=== PATIENT | female | born 1950 | race Caucasian/White ===

== ENCOUNTER → 2017-03-27 | Outpatient (CLI) | payer MEDICARE ==
--- NOTE | 2017-03-27 10:27 | US ---
EXAMINATION TYPE: US pelvic complete DATE OF EXAM: 03/27/2017 COMPARISON: CT in PACS CLINICAL HISTORY: Abd Bloating R14.0. TECHNIQUE: Transabdominal (TA) EXAM MEASUREMENTS: Uterus: Surgically absent Endometrial Stripe: Surgically absent Right Ovary: 3.0 x 1.7 x 2.2 cm Left Ovary: 2.2 x 1.0 x 1.2 cm 1. Uterus: Surgically absent 2. Endometrium: Surgically absent 3. Right Ovary: wnl 4. Left Ovary: wnl 5. Bilateral Adnexa: wnl 6. Posterior cul-de-sac: wnl IMPRESSION: Surgical absence of the uterus and unremarkable ovaries.
--- NOTE | 2017-03-27 10:27 | US ---
EXAMINATION TYPE: US abdomen complete DATE OF EXAM: 03/27/2017 COMPARISON: CT in PACS CLINICAL HISTORY: Abd Bloating R14.0. History of colon CA 15 years ago. Difficult exam due to overlyi ng bowel gas and patient body habitus EXAM MEASUREMENTS: Liver Length: 17.3 cm Gallbladder Wall: Surgically absent CBD: 0.5 cm Spleen: 8.3 cm Right Kidney: 10.3 x 4.4 x 4.2 cm Left Kidney: 11.4 x 5.2 x 4.5 cm Pancreas: Obscured by bowel gas, visualized portions are. Unremarkable Liver: Coarse echotexture. Measuring upper limits of normal. This limits evaluation for underlying h epatic masses. Gallbladder: wnl Evidence for sonographic Holloway's sign: No CBD: wnl Spleen: wnl Right Kidney: No hydronephrosis or masses seen Left Kidney: Cystic area visualized upper pole measuring 0.8 x 0.8 x 1.0 cm Upper IVC: wnl Abd Aorta: Atherosclerotic changes IMPRESSION: 1. Coarsened hepatic echotexture, most commonly related to underlying hepatic steatosis. This finding limits evaluation for underlying hepatic masses although no focal hepatic masses are appreciated. 2. Probable 1.0 cm left renal cyst.
== END | disposition home or self-care (01) ==
LOC: RADUSWWP 09:26
PROVIDERS: ATTEND Family Medicine
DX: R93.2 Abnormal findings on diagnostic imaging of liver and biliary tract (principal)
CPT/HCPCS: 76700; 76856

== ENCOUNTER → 2017-08-06 | Outpatient (CLI) | payer MEDICARE ==
--- NOTE | 2017-08-07 09:05 | MM ---
Reason for exam: screening (asymptomatic). Last mammogram was performed 1 year ago. History: Patient is postmenopausal and has history of colon cancer at age 51. Physical Findings: A clinical breast exam by your physician is recommended on an annual basis and results should be correlated with mammographic findings. MG 3D Screening Mammo W/Cad Bilateral CC and MLO view(s) were taken. Prior study comparison: July 27, 2016, bilateral MG 3d screening mammo w/cad. March 10, 2015, bilateral MG screening mammo w CAD. There are scattered fibroglandular densities. There is no discrete abnormality. No significant changes when compared with prior studies. ASSESSMENT: Negative, BI-RAD 1 RECOMMENDATION: Routine screening mammogram of both breasts in 1 year.
== END | disposition home or self-care (01) ==
LOC: RADMAMWWP 11:33
PROVIDERS: ATTEND Family Medicine
DX: Z12.31 Encounter for screening mammogram for malignant neoplasm of breast (principal)
CPT/HCPCS: 77063; 77067

== ENCOUNTER → 2018-06-20 | Outpatient (CLI) | payer MEDICARE ==
--- NOTE | 2018-06-20 15:16 | US ---
EXAMINATION TYPE: US kidneys/renal and bladder DATE OF EXAM: 06/20/2018 COMPARISON: NONE CLINICAL HISTORY: R94.4 Abnormal kidney function results. EXAM MEASUREMENTS: Right Kidney: 9.5 x 4.2 x 4.7 cm Left Kidney: 11.7 x 5.3 x 5.8 cm Right Kidney: wnl Left Kidney: seen with a 1.5cm cyst at the upper pole, otherwise wnl Bladder: wnl Bilateral Jets seen: yes There is no evidence for hydronephrosis at this point in time. No nephrolithiasis is seen. No rodriguez s are identified. The urinary bladder is anechoic. Bilateral ureteral jets are seen. IMPRESSION: 1. Simple appearing cyst left kidney. 2. Renal ultrasound is otherwise unremarkable.
== END | disposition home or self-care (01) ==
LOC: RADUSWWP 13:36
PROVIDERS: ATTEND Family Medicine
DX: N28.1 Cyst of kidney, acquired (principal)
CPT/HCPCS: 76770

== ENCOUNTER → 2018-12-02 | Outpatient (CLI) | payer MEDICARE ==
--- NOTE | 2018-12-02 20:21 | CONS ---
CONSULTATION REASON FOR CONSULTATION: Consultation for sleep apnea. This is a 68-year-old female patient referred to me upon the request of primary care physician for sleep apnea issues. The patient has an irregular sleep-wake cycle. She is waking up tired and sleepy during the day. She goes to bed around 10-11 p.m. waking up in the office messenger hours around 6:00 am. She is known to have COPD which is mild with an FEV1 of 75% of predicted. She has previous history of DVT and pulmonary embolism and she is maintained on long-term anticoagulation with Eliquis. She has a mild degree of pulmonary hypertension. She also had atrial fibrillation. She is maintained on anticoagulation. She has symptoms to suggest SOMMER including snoring, excessive daytime sleepiness. She was referred to me for a sleep apnea evaluation. PAST MEDICAL HISTORY: 1. COPD. 2. History of DVT. 3. History of pulmonary embolism. 4. Chronic atrial fibrillation. 5. Depression. 6. Acid reflux. 7. Hypertension. 8. Hyperlipidemia. 9. Hypothyroidism. 10.Chronic neck and back pain. 11.History of migraines. 12.History of anxiety. 13.History of mitral valve prolapse. PAST SURGICAL HISTORY: Includes cholecystectomy, tubal ligation, ankle surgery, surgery for endometriosis and the patient has undergone total abdominal hysterectomy and tubal ligation. Fistulectomy, D and C, breast biopsy, colonoscopy ventral hernia repair. Cardiac catheterization, sigmoid resection for cancer and colon cancer and total thyroidectomy. DRUG ALLERGIES: TO AUGMENTIN, BACTRIM, CIPRO and IODINE. SOCIAL HISTORY: Is a ex-smoker. No history of alcohol. No history of IV drugs. The patient has around 60 pack-year smoking history. She occasionally drinks alcohol. She used to drive a school bus. She is . REVIEW OF SYSTEMS: Fourteen-point review of system was done. Positive findings are mentioned above in the history of present illness. Note that the patient has chronic arthralgia and joint pain and back pain and reports no muscle aches or muscle weakness. No swelling in the lower extremities. She has stiffness and achiness in her joints especially in her hips and lower lumbar spine without any radiation. No night sweats. No significant weight gain or weight loss. No exercise. No oral ulceration. She has chronic exertional dyspnea. No wheezes. No hemoptysis. No pleurisy. No sleep apnea. No heartburn. No nausea, vomiting, or diarrhea. No abdominal pain. No skin rashes or lesions. No polyuria or polydipsia. PHYSICAL EXAMINATION: Her current BP is 174/77, pulse 60, respirations 16, temperature 98.3, saturation 95% on room air. Height is 5 feet, 2 inches, weight is 217 and neck size 14.5 inches, BMI 39.6. GENERAL APPEARANCE: Calm, comfortable. HEENT: Head is atraumatic, normocephalic. NECK: Supple. No JVD. No goiter or neck masses. Mallampati class II. LUNGS: Clear to auscultation. HEART: Sounds regular rate and rhythm. Normal S1, S2. No S3. No murmurs. ABDOMEN: Soft, nontender. No organomegaly. EXTREMITIES: No edema. No cyanosis or clubbing. NEUROLOGIC: Alert and oriented x3. No focal neurological deficits. PSYCHIATRIC: Negative for anxiety or depression. IMPRESSION: 1. Chronic hypersomnia currently under investigation, consider obstructive sleep apnea. 2. Loud snoring. 3. History of chronic obstructive pulmonary disease, FEV1 75% of predicted. 4. History of deep vein thrombosis and pulmonary embolism. 5. History of mild pulmonary hypertension which is likely secondary in nature. 6. Chronic atrial fibrillation. 7. History of colonic cancer with previous sigmoid resection. 8. Hypothyroidism. 9. Obesity with a BMI of 39.6. 10.History of depression. 11.History of chronic anxiety. 12.Hypertension. 13.Comorbidities, all as mentioned above. PLAN: Proceed with a screening polysomnogram. The patient was attempted to undergo a home sleep study a few years back. However that study failed for technical reasons. Based on her ongoing comorbidities and cardiovascular disease, the patient will be undergoing an in lab sleep study. Will review the study and will make further recommendations and make further advice if treatment is needed. MMODL / IJN: [id number] /
== END | disposition home or self-care (01) ==
LOC: SLEEP 15:50
PROVIDERS: ATTEND Internal Medicine Critical Care Medicine
DX: G47.10 Hypersomnia, unspecified (principal); R06.83 Snoring; J44.9 Chronic obstructive pulmonary disease, unspecified; F32.9 Major depressive disorder, single episode, unspecified; F41.9 Anxiety disorder, unspecified; E03.9 Hypothyroidism, unspecified; E66.9 Obesity, unspecified; I27.20 Pulmonary hypertension, unspecified; I48.91 Unspecified atrial fibrillation; Z86.718 Personal history of other venous thrombosis and embolism; Z86.711 Personal history of pulmonary embolism; Z79.01 Long term (current) use of anticoagulants; Z85.038 Personal history of other malignant neoplasm of large intestine; Z98.890 Other specified postprocedural states; Z68.39 Body mass index [BMI] 39.0-39.9, adult; Z87.891 Personal history of nicotine dependence; Z90.49 Acquired absence of other specified parts of digestive tract; Z88.1 Allergy status to other antibiotic agents; Z90.89 Acquired absence of other organs; Z88.2 Allergy status to sulfonamides; Z88.0 Allergy status to penicillin; Z91.041 Radiographic dye allergy status
CPT/HCPCS: 99211

== ENCOUNTER → 2019-01-19 | Outpatient (CLI) | payer MEDICARE ==
--- NOTE | 2019-01-20 13:20 | MM ---
Reason for exam: screening (asymptomatic). Last mammogram was performed 1 year and 5 months ago. History: Patient is postmenopausal and has history of colon cancer at age 51. Physical Findings: A clinical breast exam by your physician is recommended on an annual basis and results should be correlated with mammographic findings. MG 3D Screening Mammo W/Cad Bilateral CC and MLO view(s) were taken. Prior study comparison: August 06, 2017, bilateral MG 3d screening mammo w/cad. July 27, 2016, bilateral MG 3d screening mammo w/cad. There are scattered fibroglandular densities. Benign appearing bilateral calcifications. No suspicious abnormality. No significant changes when compared with prior studies. ASSESSMENT: Benign, BI-RAD 2 RECOMMENDATION: Routine screening mammogram of both breasts in 1 year.
== END | disposition home or self-care (01) ==
LOC: RADMAMWWP 16:27
PROVIDERS: ATTEND Family Medicine
DX: Z12.31 Encounter for screening mammogram for malignant neoplasm of breast (principal)
CPT/HCPCS: 77063; 77067

== ENCOUNTER → 2019-04-17 | Outpatient (CLI) | payer MEDICARE ==
--- NOTE | 2019-04-17 10:45 | ECHOF ---
Referral Reason:I27.20 pulmonary hypertension MEASUREMENTS -------- HEIGHT: 157.5 cm WEIGHT: 95.3 kg BP: RVIDd: 3.5 cm (< 3.3) IVSd: 1.0 cm (0.6 - 1.1) LVIDd: 4.3 cm (3.9 - 5.3) LVPWd: 1.4 cm (0.6 - 1.1) IVSs: 1.6 cm LVIDs: 2.6 cm LVPWs: 1.6 cm LA Diam: 4.0 cm (2.7 - 3.8) LAESV Index (A-L): 28.08 ml/m Ao Diam: 3.1 cm (2.0 - 3.7) AV Cusp: 1.3 cm (1.5 - 2.6) LA Diam: 3.1 cm (2.7 - 3.8) MV EXCURSION: 22.560 mm (> 18.000) MV EF SLOPE: 87 mm/s (70 - 150) EPSS: 0.1 cm MV E Bernardo: 0.92 m/s MV DecT: 253 ms MV A Bernardo: 1.24 m/s MV E/A Ratio: 0.74 RAP: 5.00 mmHg RVSP: 30.53 mmHg TAPSE: 23.25 mm FINDINGS -------- Sinus rhythm. This was a technically good study. LV size, wall thickness and systolic function are normal, with an EF greater than 55%. The left roberth tricular size is normal. The diastolic filling pattern is normal for the age of the patient 20.30. The right ventricle is normal in size. LA is midly dilated 29-33ml/m2. The right atrial size is normal. The aortic valve is trileaflet, and appears structurally normal. No aortic stenosis or regurgitation. The mitral valve is normal. Mild mitral regurgitation is present. Trace tricuspid regurgitation present. There is no evidence of pulmonary hypertension. The right ventricular systolic pressure, as measured by Doppler, is 30.53mmHg. There is no pulmonic regurgitation present. The aortic root size is normal. Echo free space indicative of a pericardial fat pad. CONCLUSIONS -------- 1. Sinus rhythm. 2. This was a technically good study. 3. LV size, wall thickness and systolic function are normal, with an EF greater than 55%. 4. The left ventricular size is normal. 5. LA is midly dilated 29-33ml/m2. 6. The aortic valve is trileaflet, and appears structurally normal. No aortic stenosis or regurgitati on. 7. Mild mitral regurgitation is present. 8. Trace tricuspid regurgitation present. 9. There is no evidence of pulmonary hypertension. 10. There is no pulmonic regurgitation present. 11. The aortic root size is normal. 12. Echo free space indicative of a pericardial fat pad. STOPPING BUILDER: Yolande Tapia RDCS
== END | disposition home or self-care (01) ==
LOC: RADECHMAIN 08:12
PROVIDERS: ATTEND Family Medicine
DX: I34.0 Nonrheumatic mitral (valve) insufficiency (principal)
CPT/HCPCS: 93306

== ENCOUNTER → 2019-05-05 | Outpatient (CLI) | payer MEDICARE ==
[2019-05-05 09:08] LABS: African American GFR (CKD) >90 (>60 ml/min/1.73 sqM); Blood Urea Nitrogen 16 mg/dL (7-17)
--- NOTE | 2019-05-05 10:25 | CT ---
EXAMINATION TYPE: CT angio chest DATE OF EXAM: 05/05/2019 COMPARISON: 01/21/2015 HISTORY: 68-year-old female SOB, history of PE TECHNIQUE: Contiguous axial scanning of the chest performed with IV Contrast, patient injected with 7 3 mL of Isovue 370. Coronal/sagittal MIP reconstructions performed. CT DLP: 584 mGycm Automated exposure control for dose reduction was used. FINDINGS: Heart normal size without pericardial effusion. Scattered coronary vessel calcifications are present. No flattening of the interventricular septum or reflux of contrast into the hepatic veins. Borderline satisfactory opacification of the pulmonary arterial system without evidence for pulmonary embolus. Mild atherosclerotic arch calcifications with conventional branching anatomy. Aorta is normal caliber . Scattered nonenlarged mediastinal lymph nodes. No thoracic lymphadenopathy by CT size criteria. Mild to moderate centrilobular emphysema and mild diffuse bronchial wall thickening. Prominent strand y scarring and atelectasis in the lower lungs, similar to 2014. No consolidation or pleural effusion. Small hiatal hernia. Visualized upper abdomen shows post cystectomy clips. Partially visualized hypod ense lesion lateral left kidney, likely underlying cyst. Bones: No osseous destructive process. IMPRESSION: 1. BORDERLINE SATISFACTORY OPACIFICATION OF THE PULMONARY ARTERY SYSTEM WITHOUT EVIDENCE FOR PULMONAR Y EMBOLUS. 2. COPD WITH MILD TO MODERATE EMPHYSEMA. NO ACUTE PULMONARY PROCESS. STABLE PROMINENT BANDLIKE SCARRI NG AND ATELECTASIS IN THE LOWER LUNGS. 3. SMALL HIATAL HERNIA.
== END | disposition home or self-care (01) ==
LOC: RADCTMAIN 08:15
PROVIDERS: ATTEND Internal Medicine
DX: J43.9 Emphysema, unspecified (principal); J98.11 Atelectasis; R06.02 Shortness of breath; Z88.0 Allergy status to penicillin; Z88.1 Allergy status to other antibiotic agents; Z88.2 Allergy status to sulfonamides; Z91.041 Radiographic dye allergy status
CPT/HCPCS: 82565; 84520; 71275; 36415; Q9967

== ENCOUNTER → 2020-06-17 | Outpatient (CLI) | payer MEDICARE ==
--- NOTE | 2020-06-17 11:33 | CT ---
EXAMINATION TYPE: CT abdomen pelvis wo con DATE OF EXAM: 06/17/2020 COMPARISON: 02/18/2013 HISTORY: RLQ pain CT DLP: 998 mGycm Examination of the solid and hollow viscera is limited given the lack of contrast. FINDINGS: LUNG BASES: No evidence for nodule. No evidence for infiltrate. LIVER/GB: Cholecystectomy clips are in place. No space-occupying hepatic lesion. PANCREAS: No pancreatic mass identified. No inflammatory process seen. SPLEEN: No evidence for splenomegaly. No intrasplenic lesions seen. ADRENALS: No adrenal nodules identified. No evidence for thickening. KIDNEYS: No evidence for renal mass. No nephrolithiasis. No hydronephrosis. BOWEL: Appendix has a normal appearance. No evidence of bowel obstruction. No inflammatory process. Lymph nodes: No evidence for adenopathy greater than 1 cm. Abdominal aorta: Atheromatous changes seen. No evidence for aneurysm. Genital organs: Hysterectomy change. No distinct mass. Other: No significant abnormality. IMPRESSION: 1. No distinct abnormality at this time.
== END | disposition home or self-care (01) ==
LOC: RADCTMAIN 10:42
PROVIDERS: ATTEND Surgery
DX: R10.31 Right lower quadrant pain (principal)
CPT/HCPCS: 74176

== ENCOUNTER 2020-07-04 12:55 | Inpatient (IN) | payer MEDICARE ==
[2020-07-04] MEDS ORDERED: ASPIRIN 81 MG PO STA (13:10)
[2020-07-04] MEDS ORDERED: NITROGLYCERIN OINT 1 INCH/GM PACKET TOPICAL STA (13:10)
--- NOTE | 2020-07-04 13:14 | ED ---
General Adult HPI - General Chief complaint: Chest Pain Stated complaint: chest pain Time Seen by Provider: 07/04/20 12:55 Source: patient, RN notes reviewed, old records reviewed Mode of arrival: wheelchair Limitations: no limitations - History of Present Illness Initial comments: This is a 69-year-old female who presents emergency Department complaining of chest pain. Patient states she just had a colonoscopy and she was in the recovery area when she started having chest heaviness she states it lasts about 20 minutes radiated to her back. Patient states she had no shortness of breath or difficulty breathing. Patient states the pain is still there slightly but no or near his bad as it was earlier. Patient denies any diaphoretic episodes. P atient denies abdominal pain patient denies nausea vomiting or diarrhea. Patient denies any recent fever chills or cough. Patient denies lightheadedness or dizziness. Patient denies patient states she's been told in the past that she has coronary artery disease. Patient states she used to be a smoker quit 15 years ago. Patient states she has a strong family history of heart disease. Patient states she has high blood pressure high cholesterol. - Related Data Home Medications Medication Instructions Recorded Confirmed Levothyroxine Sodium [Synthroid] 100 mcg PO DAILY 05/05/14 07/04/20 Furosemide [Lasix] 20 mg PO Q48H 11/15/15 07/04/20 Isosorbide Mononitrate [Isosorbide 30 mg PO DAILY 03/21/16 07/04/20 Mononitrate ER] Nitroglycerin Sl Tabs [Nitrostat] 0.4 mg SUBLINGUAL Q5M PRN 03/21/16 07/04/20 Acetaminophen Tab [Tylenol Tab] 1,000 mg PO Q6HR PRN 07/04/20 07/04/20 DULoxetine HCL [Cymbalta] 60 mg PO DAILY 07/04/20 07/04/20 Omeprazole 20 mg PO DAILY 07/04/20 07/04/20 Previous Rx's Medication Instructions Recorded Metoprolol Tartrate [Lopressor] 25 mg PO DAILY 30 Days tablet 10/06/14 Allergies Allergy/AdvReac Type Severity Reaction Status Date / Time adhesive Allergy VERY RED Verified 07/04/20 13:56 SKIN WITH TAPE amoxicillin trihydrate Allergy Nausea & Verified 07/04/20 13:56 [From Augmentin] Vomiting Iodinated Contrast Media Allergy Nausea & Verified 07/04/20 13:56 [Iodinated Contrast Media - Vomiting IV Dye] iodine Allergy Rash/Hives Verified 07/04/20 13:56 potassium clavulanate Allergy Nausea & Verified 07/04/20 13:56 [From Augmentin] Vomiting sulfamethoxazole Allergy Rash/Hives Verified 07/04/20 13:56 [From Bactrim] trimethoprim [From Bactrim] Allergy Rash/Hives Verified 07/04/20 13:56 Review of Systems ROS Statement: Those systems with pertinent positive or pertinent negative responses have been documented in the HPI. ROS Other: All systems not noted in ROS Statement are negative. Past Medical History Past Medical History: Cancer, COPD, GERD/Reflux, Hypertension, Osteoarthritis (OA), Pulmonary Embolus (PE), Thyroid Disorder Additional Past Medical History / Comment(s): HYPOGLYCEMIA, HISTORY OF COLON CANCER. MVP, hx of arrythmia, HX hiatal hernia, pulmonary embolisms September 2014 after ankle fx. History of Any Multi-Drug Resistant Organisms: None Reported Past Surgical History: Bowel Resection, Cholecystectomy, Heart Catheterization, Hysterectomy, Orthopedic Surgery Additional Past Surgical History / Comment(s): D&C, THRYOIDECTOMY, ORIF right ankle Past Anesthesia/Blood Transfusion Reactions: No Reported Reaction Past Psychological History: Anxiety, Depression Smoking Status: Never smoker Past Alcohol Use History: Rare Past Drug Use History: None Reported - Past Family History Father Family Medical History: Diabetes Mellitus, Hypertension, Myocardial Infarction (OK) Sister(s) Family Medical History: Diabetes Mellitus Brother(s) Family Medical History: Cancer, Diabetes Mellitus Mother Family Medical History: Cancer General Exam - General Exam Comments Initial Comments: GENERAL: Patient is well-developed and well-nourished. Patient is nontoxic and well- hydrated and is in mild distress. ENT: Neck is soft and supple. No significant lymphadenopathy is noted. Oropharynx is clear. Moist mucous membranes. Neck has full range of motion without eliciting any pain. EYES: The sclera were anicteric and conjunctiva were pink and moist. Extraocular movements were intact and pupils were equal round and reactive to light. Eyelids were unremarkable. PULMONARY: Unlabored respirations. Good breath sounds bilaterally. No audible rales rhonchi or wheezing was noted. CARDIOVASCULAR: There is a regular rate and rhythm without any murmurs gallops or rubs. ABDOMEN: Soft and nontender with normal bowel sounds. SKIN: Skin is clear with no lesions or rashes and otherwise unremarkable. NEUROLOGIC: Patient is alert and oriented x3. Cranial nerves II through XII are grossly intact. Motor and sensory are also intact. Normal speech, volume and content. Symmetrical smile. MUSCULOSKELETAL: Normal extremities with adequate strength and full range of motion. LYMPHATICS: No significant lymphadenopathy is noted PSYCHIATRIC: Normal psychiatric evaluation. Limitations: no limitations Course Vital Signs 07/04/20 07/04/20 12:56 13:34 Temperature 98.6 F Pulse Rate 77 82 Respiratory 18 18 Rate Blood Pressure 160/90 178/89 O2 Sat by Pulse 97 99 Oximetry Medical Decision Making - Medical Decision Making EKG shows sinus rhythm with occasional PAC at 76 bpm [place] interval is 200 QRS 70 QT interval 360 QTC is 414. EKG shows no ST segment elevation or depression Chest x-ray shows no acute abnormality. I started the patient heparin because of the at and STEMI I spoke with cardiology Spoke with Dr. Rivera agreed to admit the patient admitted the patient I continued heparin and aspirin and Nitropaste on the floor and I consult to cardiology - Lab Data Result diagrams: 07/04/20 13:24 07/04/20 13:24 Lab Results 07/04/20 07/04/20 07/04/20 Range/Units 13:24 13:24 13:24 WBC 9.0 (3.8-10.6) k/uL RBC 4.89 (3.80-5.40) m/uL Hgb 14.9 (11.4-16.0) gm/dL Hct 44.1 (34.0-46.0) % MCV 90.3 (80.0-100.0) fL MCH 30.4 (25.0-35.0) pg MCHC 33.7 (31.0-37.0) g/dL RDW 12.6 (11.5-15.5) % Plt Count 296 (150-450) k/uL MPV 6.6 Neutrophils % 77 % Lymphocytes % 16 % Monocytes % 4 % Eosinophils % 1 % Basophils % 0 % Neutrophils # 6.9 (1.3-7.7) k/uL Lymphocytes # 1.5 (1.0-4.8) k/uL Monocytes # 0.4 (0-1.0) k/uL Eosinophils # 0.1 (0-0.7) k/uL Basophils # 0.0 (0-0.2) k/uL PT 9.9 (9.0-12.0) sec INR 0.9 (<1.2) APTT 22.9 (22.0-30.0) sec Sodium 138 (137-145) mmol/L Potassium 4.2 (3.5-5.1) mmol/L Chloride 109 H (98-107) mmol/L Carbon Dioxide 21 L (22-30) mmol/L Anion Gap 8 mmol/L BUN 8 (7-17) mg/dL Creatinine 0.70 (0.52-1.04) mg/dL Est GFR (CKD-EPI)AfAm >90 (>60 ml/min/1.73 sqM) Est GFR (CKD-EPI)NonAf 87 (>60 ml/min/1.73 sqM) Glucose 98 (74-99) mg/dL Calcium 9.3 (8.4-10.2) mg/dL Magnesium 2.0 (1.6-2.3) mg/dL Total Bilirubin 0.5 (0.2-1.3) mg/dL AST 56 H (14-36) U/L ALT 58 H (4-34) U/L Alkaline Phosphatase 94 (38-126) U/L Troponin I (0.000-0.034) ng/mL Total Protein 6.9 (6.3-8.2) g/dL Albumin 4.0 (3.5-5.0) g/dL 07/04/20 Range/Units 13:24 WBC (3.8-10.6) k/uL RBC (3.80-5.40) m/uL Hgb (11.4-16.0) gm/dL Hct (34.0-46.0) % MCV (80.0-100.0) fL MCH (25.0-35.0) pg MCHC (31.0-37.0) g/dL RDW (11.5-15.5) % Plt Count (150-450) k/uL MPV Neutrophils % % Lymphocytes % % Monocytes % % Eosinophils % % Basophils % % Neutrophils # (1.3-7.7) k/uL Lymphocytes # (1.0-4.8) k/uL Monocytes # (0-1.0) k/uL Eosinophils # (0-0.7) k/uL Basophils # (0-0.2) k/uL PT (9.0-12.0) sec INR (<1.2) APTT (22.0-30.0) sec Sodium (137-145) mmol/L Potassium (3.5-5.1) mmol/L Chloride (98-107) mmol/L Carbon Dioxide (22-30) mmol/L Anion Gap mmol/L BUN (7-17) mg/dL Creatinine (0.52-1.04) mg/dL Est GFR (CKD-EPI)AfAm (>60 ml/min/1.73 sqM) Est GFR (CKD-EPI)NonAf (>60 ml/min/1.73 sqM) Glucose (74-99) mg/dL Calcium (8.4-10.2) mg/dL Magnesium (1.6-2.3) mg/dL Total Bilirubin (0.2-1.3) mg/dL AST (14-36) U/L ALT (4-34) U/L Alkaline Phosphatase (38-126) U/L Troponin I 0.872 H* (0.000-0.034) ng/mL Total Protein (6.3-8.2) g/dL Albumin (3.5-5.0) g/dL Critical Care Time Critical Care Time: Yes Total Critical Care Time: 35 Disposition Clinical Impression: Acute non-ST elevation myocardial infarction (NSTEMI) Disposition: ADMITTED IP TO THIS HOSP Referrals: Rommel Walker DO [Primary Care Provider] - 1-2 days Time of Disposition: 14:33
[2020-07-04 13:38] LABS: Basophils % (A) 0 %; Eosinophils # (A) 0.1 k/uL (0-0.7); Eosinophils % (A) 1 %; HCT 44.1 % (34.0-46.0); HGB 14.9 gm/dL (11.4-16.0); Lymphocytes # (A) 1.5 k/uL (1.0-4.8); Lymphocytes % (A) 16 %; MCH 30.4 pg (25.0-35.0); MCHC 33.7 g/dL (31.0-37.0); MCV 90.3 fL (80.0-100.0); Mean Platelet Volume 6.6; Monocytes # (A) 0.4 k/uL (0-1.0); Monocytes % (A) 4 %; Neutrophils # (A) 6.9 k/uL (1.3-7.7); Neutrophils % (A) 77 %; Platelet Count 296 k/uL (150-450); RBC 4.89 m/uL (3.80-5.40); RDW 12.6 % (11.5-15.5)
[2020-07-04 13:51] LABS: INR 0.9 (<1.2); Partial Thromboplastin Time 22.9 sec (22.0-30.0); Prothrombin Time 9.9 sec (9.0-12.0)
[2020-07-04 13:57] LABS: ALT 58 U/L (4-34); AST 56 U/L (14-36); African American GFR (CKD) >90 (>60 ml/min/1.73 sqM); Alkaline Phosphatase 94 U/L (38-126); Anion Gap 8 mmol/L; Blood Urea Nitrogen 8 mg/dL (7-17); Calcium 9.3 mg/dL (8.4-10.2); Carbon Dioxide 21 mmol/L (22-30); Chloride 109 mmol/L (98-107); Glucose 98 mg/dL (74-99); Non-African American GFR(CKD) 87 (>60 ml/min/1.73 sqM); Potassium 4.2 mmol/L (3.5-5.1); Sodium 138 mmol/L (137-145); Total Bilirubin 0.5 mg/dL (0.2-1.3); Total Protein 6.9 g/dL (6.3-8.2)
[2020-07-04] MEDS ORDERED: HEPARIN SODIUM,PORCINE 5,000 UNIT/ML 1 ML VIAL IV ONE (14:19)
[2020-07-04] MEDS ORDERED: HEPARIN SOD,PORK IN 0.45% NACL 25,000 UNIT in 0.45% NACL 1 250ML.BAG IV SCH (14:30)
[2020-07-04] MEDS ORDERED: NITROGLYCERIN SL TABS 0.4 MG TAB SUBLINGUAL PRN ×2 (14:33→18:44)
--- NOTE | 2020-07-04 15:13 | P.CRDCN ---
History of Present Illness Consult date: 07/04/20 History of present illness: CHIEF COMPLAINT: Chest pain HISTORY OF PRESENT ILLNESS: This is a 69-year-old female with a past medical history significant for hypertension, hyperlipidemia, hypothyroidism, GERD, osteoarthritis, and former nicotine dependence. Patient follows in the office with Dr. Nix but has not seen him in over a year. We have been asked to see the patient in consultation for chest pain. Patient examined today at the bedside in the emergency room. Patient states that she underwent a colonoscopy today with Dr. Xiao at [facility]. Patient states that when she woke up from her colonoscopy she began having extreme chest pressure and states it felt like something was sitting on her chest. She denied any shortness of breath. She denied any nausea or vomiting. Denied any radiation of the pain however she also reports discomfort between the upper shoulder blades. Denied any diaphoresis. The patient reports that she had an episode of chest pain about 2 days ago and she did have radiation to the jaw at that time. Patient reports a history of chronic shortness of breath over the past several months and states that she has a history of pulmonary hypertension. However, she had an echocardiogram completed in 2019 which did not reveal any evidence of pulmonary hypertension. It did show an ejection fraction greater than 55%. The patient underwent a cardiac catheterization in [address] Nix revealing mild nonobstructive coronary artery disease. DIAGNOSTICS: EKG reveals sinus rhythm Laboratory data: WBC 9.0. Hemoglobin 14.9. Platelet count 296. Sodium 130. Potassium 4.2. BUN 8. Creatinine 0.70. Magnesium 2.0. AST 56. ALT 58. Troponin 0.872 Current home cardiac medications include Toprol 25 mg daily, Imdur 30 mg daily, Lasix 20 mg every 48 hours REVIEW OF SYSTEMS: At the time of my exam: CONSTITUTIONAL: Denies fever or chills. HEENT: Denies blurred vision, vision changes, or eye pain. Denies hemoptysis CARDIOVASCULAR: Denies chest pain, orthopnea, PND or palpitations RESPIRATORY: No shortness of breath. GASTROINTESTINAL: Denies abdominal pain. Denies nausea or vomiting. HEMATOLOGIC: Denies bleeding disorders. GENITOURINARY: Denies any blood in urine. SKIN: Denies pruitis. Denies rash. PHYSICAL EXAM: VITAL SIGNS: Reviewed. GENERAL: Well-developed in no acute distress. HEENT: Head is normocephalic. Pupils are equal, round. Sclerae anicteric. Mucous membranes of the mouth are moist. Neck supple. No JVD or thyromegaly LUNGS: Respirations even and unlabored. Lungs essentially clear to auscultation bilaterally. HEART: Regular rate and rhythm. S1 and S2 heard. ABDOMEN: Soft. Nondistended. Nontender. EXTREMITIES: Normal range of motion. No clubbing or cyanosis. Peripheral pulses intact. No lower extremity edema NEUROLOGIC: Awake and alert. Oriented x 3. ASSESSMENT: Elevated troponin, possible non-ST elevated myocardial infection S/P colonoscopy, 07/04/20 Hypertension Hyperlipidemia History of cardiac catheterization in 2016 revealing mild non-obstructive coronary artery disease Former nicotine dependence Obesity BMI 39.5 PLAN: Resume home cardiac medications Case discussed with Dr. Xiao who is okay with IV heparin infusion Obtain 2D echo to assess cardiac structure and function Trend troponin Patient will be evaluated this afternoon by Dr. Menendez. Further recommendations pending. Nurse practitioner note has been reviewed by physician. Signing provider agrees with the documented findings, assessment, and plan of care. Past Medical History Past Medical History: Cancer, COPD, GERD/Reflux, Hypertension, Osteoarthritis (OA), Pulmonary Embolus (PE), Thyroid Disorder Additional Past Medical History / Comment(s): HYPOGLYCEMIA, HISTORY OF COLON CANCER. MVP, hx of arrythmia, HX hiatal hernia, pulmonary embolisms September 2014 after ankle fx. History of Any Multi-Drug Resistant Organisms: None Reported Past Surgical History: Bowel Resection, Cholecystectomy, Heart Catheterization, Hysterectomy, Orthopedic Surgery Additional Past Surgical History / Comment(s): D&C, THRYOIDECTOMY, ORIF right ankle Past Anesthesia/Blood Transfusion Reactions: No Reported Reaction Past Psychological History: Anxiety, Depression Smoking Status: Never smoker Past Alcohol Use History: Rare Past Drug Use History: None Reported - Past Family History Father Family Medical History: Diabetes Mellitus, Hypertension, Myocardial Infarction ([place]) Sister(s) Family Medical History: Diabetes Mellitus Brother(s) Family Medical History: Cancer, Diabetes Mellitus Mother Family Medical History: Cancer Medications and Allergies Home Medications Medication Instructions Recorded Confirmed Type Levothyroxine Sodium [Synthroid] 100 mcg PO DAILY 05/05/14 07/04/20 History Metoprolol Tartrate [Lopressor] 25 mg PO DAILY 30 Days tablet 10/06/14 07/04/20 Rx Furosemide [Lasix] 20 mg PO Q48H 11/15/15 07/04/20 History Isosorbide Mononitrate [Isosorbide 30 mg PO DAILY 03/21/16 07/04/20 History Mononitrate ER] Nitroglycerin Sl Tabs [Nitrostat] 0.4 mg SUBLINGUAL Q5M PRN 03/21/16 07/04/20 History Acetaminophen Tab [Tylenol Tab] 1,000 mg PO Q6HR PRN 07/04/20 07/04/20 History DULoxetine HCL [Cymbalta] 60 mg PO DAILY 07/04/20 07/04/20 History Omeprazole 20 mg PO DAILY 07/04/20 07/04/20 History Allergies Allergy/AdvReac Type Severity Reaction Status Date / Time adhesive Allergy VERY RED Verified 07/04/20 13:56 SKIN WITH TAPE amoxicillin trihydrate Allergy Nausea & Verified 07/04/20 13:56 [From Augmentin] Vomiting Iodinated Contrast Media Allergy Nausea & Verified 07/04/20 13:56 [Iodinated Contrast Media - Vomiting IV Dye] iodine Allergy Rash/Hives Verified 07/04/20 13:56 potassium clavulanate Allergy Nausea & Verified 07/04/20 13:56 [From Augmentin] Vomiting sulfamethoxazole Allergy Rash/Hives Verified 07/04/20 13:56 [From Bactrim] trimethoprim [From Bactrim] Allergy Rash/Hives Verified 07/04/20 13:56 Physical Exam Vitals: Vital Signs Temp Pulse Resp BP Pulse Ox 07/04/20 14:42 82 18 146/78 99 07/04/20 13:34 82 18 178/89 99 07/04/20 12:56 98.6 F 77 18 160/90 97 Intake and Output 07/03/20 07/04/20 07/04/20 22:59 06:59 14:59 Other: Weight 97.976 kg Results 07/04/20 13:24 07/04/20 13:24 Cardiac Enzymes 07/04/20 07/04/20 Range/Units 13:24 13:24 AST 56 H (14-36) U/L Troponin I 0.872 H* (0.000-0.034) ng/mL Coagulation 07/04/20 Range/Units 13:24 PT 9.9 (9.0-12.0) sec APTT 22.9 (22.0-30.0) sec CBC 07/04/20 Range/Units 13:24 WBC 9.0 (3.8-10.6) k/uL RBC 4.89 (3.80-5.40) m/uL Hgb 14.9 (11.4-16.0) gm/dL Hct 44.1 (34.0-46.0) % Plt Count 296 (150-450) k/uL Comprehensive Metabolic Panel 07/04/20 Range/Units 13:24 Sodium 138 (137-145) mmol/L Potassium 4.2 (3.5-5.1) mmol/L Chloride 109 H (98-107) mmol/L Carbon Dioxide 21 L (22-30) mmol/L BUN 8 (7-17) mg/dL Creatinine 0.70 (0.52-1.04) mg/dL Glucose 98 (74-99) mg/dL Calcium 9.3 (8.4-10.2) mg/dL AST 56 H (14-36) U/L ALT 58 H (4-34) U/L Alkaline Phosphatase 94 (38-126) U/L Total Protein 6.9 (6.3-8.2) g/dL Albumin 4.0 (3.5-5.0) g/dL Current Medications Generic Name Dose Route Start Last Admin Trade Name Freq PRN Reason Stop Dose Admin Aspirin 325 mg 07/05/20 09:00 Aspirin 325 Mg Tab PO DAILY [facility] Heparin Sodium/Sodium Chloride 250 mls @ 9.994 mls/hr 07/04/20 14:30 07/04/20 14:37 25,000 unit/ Sodium Chloride IV 10.2 units/kg/hr .Q24H ADALID 9.994 mls/hr Administration Protocol 10.2 UNITS/KG/HR Nitroglycerin 0.4 mg 07/04/20 14:33 Nitroglycerin Sl Tabs 0.4 Mg Tab SUBLINGUAL Q5M PRN Chest Pain Nitroglycerin 1 inch 07/04/20 18:00 Nitroglycerin Oint 1 Inch/Gm Packet TOPICAL Q6HR ADALID Intake and Output 07/03/20 07/04/20 07/04/20 22:59 06:59 14:59 Other: Weight 97.976 kg Patient Weight 07/05/20 06:59 Weight 97.976 kg 07/04/20 13:24 07/04/20 13:24
[2020-07-04] MEDS ORDERED: FUROSEMIDE 20 MG TAB PO SCH (15:15)
--- NOTE | 2020-07-04 16:16 | XR ---
EXAMINATION TYPE: XR chest 2V DATE OF EXAM: 07/04/2020 COMPARISON: 09/30/2014 HISTORY: 69-year-old female with chest pain and shortness of breath TECHNIQUE: AP and lateral views FINDINGS: Heart upper limits of normal in size. Mild interstitial and vascular prominence. Strandy atelectasis left midlung. No consolidation or pleural effusion. IMPRESSION: Prominence to the interstitium and vasculature. Correlate to exclude mild pulmonary vascular congesti on.
[2020-07-04] MEDS ORDERED: NITROGLYCERIN OINT 1 INCH/GM PACKET TOPICAL SCH (18:00)
[2020-07-04] MEDS ORDERED: SODIUM CHLORIDE 0.9% 1,000 ML in EMPTY BAG 1 BAG IV ONE (18:51)
[2020-07-04] MEDS ORDERED: ATORVASTATIN 80 MG TAB PO STA (18:51)
[2020-07-04] MEDS ORDERED: ALPRAZolam 0.25 MG TAB PO PRN (18:51)
[2020-07-04] MEDS ORDERED: LIDOCAINE 1% INJ 10MG/ML (20 ML MDV) ONE (19:01)
[2020-07-04 19:02] LABS: Glucose,Whole Blood 113 mg/dL (75-99)
[2020-07-04] MEDS ORDERED: VERAPAMIL 2.5 MG/ML 2 ML AMP ONE (19:19)
[2020-07-04] MEDS ORDERED: IV FLUID CONTINUATION 1,000 ML IV ONE (19:30)
[2020-07-04] MEDS ORDERED: diphenhydrAMINE 50 MG/ML 1 ML VIAL ONE (19:48)
[2020-07-04] MEDS ORDERED: methylPREDNISolone SOD SUCCI 125 MG/2 ML VIAL ONE (19:48)
[2020-07-04] MEDS ORDERED: methylPREDNISolone SOD SUCCI 125 MG/2 ML VIAL IVP ONE (19:49)
[2020-07-04] MEDS ORDERED: diphenhydrAMINE 50 MG/ML 1 ML VIAL IVP ONE (19:49)
[2020-07-04] MEDS ORDERED: MIDAZOLAM 2 MG/2 ML VIAL IVP ONE ×2 (19:51)
[2020-07-04] MEDS ORDERED: LIDOCAINE 1% INJ 10MG/ML (20 ML MDV) SQ ONE (19:51)
[2020-07-04] MEDS: VERAPAMIL SYRINGE (5 MG/10 ML) INTRAARTER ONE ×2 (19:53→20:07)
[2020-07-04] MEDS ORDERED: FUROSEMIDE 10 MG/ML 4 ML VIAL ONE (20:06)
[2020-07-04] MEDS ORDERED: IOPAMIDOL-370 125ML BTL INJ ONE (20:07)
[2020-07-04] MEDS ORDERED: FUROSEMIDE 10 MG/ML 4 ML VIAL IVP ONE (20:07)
[2020-07-04] MEDS ORDERED: METOPROLOL TARTRATE 12.5 MG TAB PO STA (20:35)
--- NOTE | 2020-07-04 20:53 | CC ---
CARDIAC CATHETERIZATION REPORT DATE OF SERVICE: 07/04/2020 PROCEDURE: Left heart catheterization and coronary angiography. PERFORMED BY: Dr. Herminio Menendez. Moderate conscious sedation time was 17 minutes. Patient was administered Versed. Oxygen saturation, hemodynamics and EKG were monitored closely. CLINICAL INFORMATION: Mrs. Shante Prado is a 69-year-old lady with history of hypertension, hyperlipidemia, and no significant CAD based on a cardiac cath in 2016. She underwent an elective colonoscopy today at [facility] at the [facility]. Following the procedure after she woke up from anesthesia, she complained of chest heaviness and pressure. During the procedure, EKG revealed some J-point prominence. Her pain was suggestive of angina. She was transferred to the emergency room at [facility]. I evaluated the patient, and initially she was comfortable. Her troponin was mildly elevated. Subsequent repeat troponin went up to 5, and she had additional chest pain with some ST-segment depression in precordial leads. She was therefore advised cardiac catheterization after due discussion with the patient, her significant other and her son. Risks, benefits, options and rationale were explained. PROCEDURE NOTE: Under local anesthesia and strict aseptic precautions, a 6-Italian introducer was placed in the right radial artery. Using JR4 and JL3.5 catheters, I performed coronary angiography. The same right Isauro catheter was used to check LV pressure, but LV gram was not performed. The sheath was taken out and TR band applied as per protocol. Patient tolerated the procedure well without complications. There was a question of contrast allergies. Patient was therefore administered Benadryl and also Solu-Medrol 75 mg. CARDIAC CATHETERIZATION FINDINGS: The left ventricular end-diastolic pressure was 23 mmHg without any gradient across the aortic valve. CORONARY ANGIOGRAPHY FINDINGS: RIGHT CORONARY ARTERY: Technically a nondominant vessel, it has no significant disease, has minor irregularities and supplies a limited amount of myocardium. RCA is therefore a nondominant vessel without significant disease. LEFT MAIN CORONARY ARTERY: Short patent vessel that immediately bifurcates into LAD and circumflex. No significant disease in the left main itself. LEFT ANTERIOR DESCENDING CORONARY ARTERY: Good-caliber vessel extends along the anterior wall, gives off diagonal and septal branches. There is no significant disease. Minor irregularities are noted. This is a good-caliber, good-distribution vessel that curves over the apex to supply the inferoapical portion of left ventricle. LEFT POSTERIOR CIRCUMFLEX CORONARY ARTERY: Technically this is a dominant vessel. It proximally gives off a good-sized obtuse marginal branch which is free of significant disease. In the mid portion there are no significant areas of disease, and then it bifurcates into a good-sized PDA and PLV, both of which supply a sizable amount of myocardium. There is no significant disease in the dominant circumflex system. FINAL IMPRESSION: This patient has a left-dominant system, elevated filling pressures, and no gradient across the aortic valve. LV gram was not performed, but on echocardiogram there is evidence of anteroapical septal area of hypokinesia as well as the inferoapical portion of the left ventricle. The echocardiographic picture is suggestive of Takotsubo's syndrome. RECOMMENDATIONS: I am recommending that we will continue supportive care with modest doses of Lasix, beta blockers and losartan. I am recommending that we continue cautious diuresis, and I gave her 20 mg of Lasix tonight. Prognosis remains guarded. The patient has takotsubo with no significant obstructive CAD. I am recommending continued medical therapy with risk factor modification. Findings were discussed with the patient, her significant other and her son. MMODL / IJN: [id number] /
[2020-07-04] MEDS: SODIUM CHLORIDE 0.9% 1,000 ML IV SCH (21:01)
[2020-07-04] MEDS: ACETAMINOPHEN TAB 500 MG TAB PO PRN (22:37)
[2020-07-04] MEDS: ALPRAZolam 0.5 MG TAB PO PRN (22:37)
[2020-07-04] MEDS: NITROGLYCERIN OINT 1 INCH/GM PACKET TOPICAL SCH (22:37)
[2020-07-05] MEDS: NITROGLYCERIN OINT 1 INCH/GM PACKET TOPICAL SCH (05:14)
[2020-07-05] MEDS: PANTOPRAZOLE 40 MG TABLET PO SCH (06:22)
[2020-07-05] MEDS: LEVOTHYROXINE 100 MCG TAB PO SCH (06:22)
[2020-07-05 06:24] LABS: Glucose,Whole Blood 129 mg/dL (75-99)
[2020-07-05 08:28] LABS: HCT 41.5 % (34.0-46.0); HGB 14.5 gm/dL (11.4-16.0); MCH 31.7 pg (25.0-35.0); MCHC 34.9 g/dL (31.0-37.0); MCV 90.7 fL (80.0-100.0); Mean Platelet Volume 7.1; Platelet Count 344 k/uL (150-450); RBC 4.57 m/uL (3.80-5.40); RDW 12.5 % (11.5-15.5); WBC 5.8 k/uL (3.8-10.6)
[2020-07-05 08:49] LABS: African American GFR (CKD) >90 (>60 ml/min/1.73 sqM); Anion Gap 9 mmol/L; Blood Urea Nitrogen 12 mg/dL (7-17); Calcium 9.4 mg/dL (8.4-10.2); Carbon Dioxide 23 mmol/L (22-30); Chloride 105 mmol/L (98-107); Cholesterol 210 mg/dL (<200); Glucose 198 mg/dL (74-99); HDL Cholesterol 75 mg/dL (40-60); LDL Cholesterol,Calculated 120 mg/dL (0-99); Non-African American GFR(CKD) 86 (>60 ml/min/1.73 sqM); Potassium 4.7 mmol/L (3.5-5.1); Sodium 137 mmol/L (137-145); Triglycerides 76 mg/dL (<150)
[2020-07-05] MEDS ORDERED: METOPROLOL TARTRATE 25 MG TAB PO SCH (09:00)
[2020-07-05] MEDS ORDERED: ASPIRIN 325 MG TAB PO SCH (09:00)
[2020-07-05] MEDS ORDERED: ISOSORBIDE MONONITRATE ER 30 MG TAB.ER.24H PO SCH (09:00)
[2020-07-05] MEDS ORDERED: HEPARIN SODIUM,PORCINE 5,000 UNIT/ML 1 ML VIAL SQ SCH (09:00)
[2020-07-05] MEDS: METOPROLOL TARTRATE 25 MG TAB PO SCH ×2 (09:21→20:41)
[2020-07-05] MEDS: ALPRAZolam 0.5 MG TAB PO PRN ×2 (09:22→22:42)
[2020-07-05] MEDS: ASPIRIN 81 MG PO SCH (09:22)
[2020-07-05] MEDS: FUROSEMIDE 10 MG/ML 2 ML VIAL IV SCH ×2 (09:22→20:41)
[2020-07-05] MEDS: DULoxetine HCL 60 MG CAPSULE.DR PO SCH (09:22)
[2020-07-05] MEDS: LOSARTAN 25 MG TAB PO SCH (09:22)
[2020-07-05] MEDS: ENOXAPARIN 100 MG/ML SYRINGE SQ SCH ×2 (09:31→20:41)
--- NOTE | 2020-07-05 13:01 | P.PN ---
Subjective This is a pleasant 69-year-old female past medical history significant for hypertension, dyslipidemia and former nicotine dependence. She underwent cardiac catheterization last evening secondary to troponin elevation revealing no significant obstructive disease and no gradient across the aortic valve with evidence of anterior apical septal hypokinesia as well as inferior apical suggestive of Takotsubo syndrome. She is seen and examined sitting up in bed in no acute distress. She complains of feeling very mildly lightheaded when she gets up to ambulate. She has no chest pain, shortness of breath or palpitations. Blood pressure 119/72 heart rate 68 afebrile maintaining oxygen saturation on room air. Laboratory data reviewed, CBC unremarkable, sodium 137, potassium 4.7, LDL 120, HDL 75 and creatinine 0.71. Currently maintained on aspirin 81 mg daily, Lovenox 90 mg twice a day, Lasix 20 mg IV twice a day, losartan 12.5 mg daily, metoprolol 25 mg twice a day and nitro paste. She is maintaining a negative fluid balance. GENERAL: Well-appearing, well-nourished and in no acute distress. NECK: Supple without JVD or thyromegaly. LUNGS: Breath sounds clear to auscultation bilaterally. Respiration equal and unlabored. No wheezes, rales or rhonchi. HEART: Regular rate and rhythm without murmurs, rubs or gallops. S1 and S2 heard. EXTREMITIES: Normal range of motion, no edema. No clubbing or cyanosis. Peripheral pulses intact. Right radial access site intact with no bleeding, oozing, hematoma or ecchymosis. ASSESSMENT Non-ST elevated myocardial infarction Takotsubo syndrome Hypertension Dyslipidemia Former nicotine dependence PLAN Continue current medical regimen. Increase activity as tolerated. Possible discharge tomorrow if she continues to improve. We will put her on anti-coagulation for approximately 6 weeks given the poor LV function to prevent LV thrombus formation. Nurse Practitioner note has been reviewed, I agree with a documented findings and plan of care. Patient was seen and examined. Objective - Vital Signs Vital signs: Vital Signs Temp 98.5 F 07/05/20 11:55 Pulse 68 07/05/20 11:55 Resp 14 07/05/20 11:55 BP 119/72 07/05/20 11:55 Pulse Ox 95 07/05/20 11:55 Intake & Output 07/04/20 07/05/20 07/05/20 18:59 06:59 18:59 Intake Total 97.472 180 Output Total 1550 1000 Balance -1452.528 -820 Weight 97.976 kg 96.3 kg Intake: IV 50 Intake, IV Titration 47.472 Amount Heparin Sod,Pork in 0.45% 47.472 NaCl 25,000 unit In 0.45 % NaCl 1 250ml.bag @ 10.2 UNITS/KG/HR 9.994 mls/hr IV .Q24H [facility] Rx#: [id number] Oral 180 Output: Urine 1550 1000 Other: # Voids 1 - Labs CBC & Chem 7: 07/05/20 07:35 07/05/20 07:35 Labs: Abnormal Lab Results - Last 24 Hours (Table) 07/04/20 07/04/20 07/04/20 Range/Units 13:24 13:24 16:19 Chloride 109 H (98-107) mmol/L Carbon Dioxide 21 L (22-30) mmol/L Glucose (74-99) mg/dL POC Glucose (mg/dL) (75-99) mg/dL AST 56 H (14-36) U/L ALT 58 H (4-34) U/L Troponin I 0.872 H* 5.140 H* (0.000-0.034) ng/mL Cholesterol (<200) mg/dL LDL Cholesterol, Calc (0-99) mg/dL HDL Cholesterol (40-60) mg/dL 07/04/20 07/05/20 07/05/20 Range/Units 19:01 06:23 07:35 Chloride (98-107) mmol/L Carbon Dioxide (22-30) mmol/L Glucose 198 H (74-99) mg/dL POC Glucose (mg/dL) 113 H 129 H (75-99) mg/dL AST (14-36) U/L ALT (4-34) U/L Troponin I (0.000-0.034) ng/mL Cholesterol 210 H (<200) mg/dL LDL Cholesterol, Calc 120 H (0-99) mg/dL HDL Cholesterol 75 H (40-60) mg/dL
--- NOTE | 2020-07-05 14:01 | ECHOF ---
Referral Reason:LV function MEASUREMENTS -------- HEIGHT: 157.5 cm WEIGHT: 98.0 kg BP: RVIDd: 3.1 cm (< 3.3) IVSd: 0.8 cm (0.6 - 1.1) LVIDd: 5.7 cm (3.9 - 5.3) LVPWd: 0.9 cm (0.6 - 1.1) IVSs: 1.2 cm LVIDs: 4.2 cm LVPWs: 1.6 cm LAESV Index (A-L): 36.44 ml/m Ao Diam: 3.0 cm (2.0 - 3.7) AV Cusp: 1.8 cm (1.5 - 2.6) LA Diam: 3.9 cm (2.7 - 3.8) MV EXCURSION: 14.919 mm (> 18.000) MV EF SLOPE: 114 mm/s (70 - 150) EPSS: 0.3 cm MV E Bernardo: 0.84 m/s MV DecT: 174 ms MV A Bernardo: 1.08 m/s MV E/A Ratio: 0.78 RAP: 5.00 mmHg RVSP: 48.13 mmHg FINDINGS -------- Sinus rhythm. This was a techncally difficult study with suboptimal views, , Lumason utilized for enhancement of im ages. The left ventricular size is normal. There is mild concentric left ventricular hypertrophy. Overa ll left ventricular systolic function is severely impaired with, an EF between 20 - 25 %. Mid anter ior LV wall motion is hypokinetic. Apical anterior LV wall motion is hypokinetic. Apical latera l LV wall motion is hypokinetic. Apical inferior LV wall motion is hypokinetic. Apical septum L V wall motion is hypokinetic. Max Hypokinesis. The right ventricle is normal in size. The left atrium is moderately dilated. LA is moderately dilated 34-39 ml/m2 The right atrial size is normal. 5.0mg OF Lumason UTLIZED: 2 OR MORE WALL SEGMENTS NOT VISUALIZED. The aortic valve is trileaflet, and appears structurally normal. No aortic stenosis or regurgitation. [id number] mitral regurgitation is present. Mild tricuspid regurgitation present. There is moderate pulmonary hypertension. Trace/mild (physiologic) pulmonic regurgitation. The aortic root size is normal. There is a small, generalized pericardial effusion present. CONCLUSIONS -------- 1. This was a techncally difficult study with suboptimal views, , Lumason utilized for enhancement of images. 2. The left ventricular size is normal. 3. There is mild concentric left ventricular hypertrophy. 4. Overall left ventricular systolic function is severely impaired with, an EF between 20 - 25 %. 5. Apical anterior LV wall motion is hypokinetic. 6. Apical lateral LV wall motion is hypokinetic. 7. Apical inferior LV wall motion is hypokinetic. 8. Apical septum LV wall motion is hypokinetic. 9. Max Hypokinesis. 10. The right ventricle is normal in size. 11. LA is moderately dilated 34-39 ml/m2 12. The right atrial size is normal. 13. 5.0mg OF Lumason UTLIZED: 2 OR MORE WALL SEGMENTS NOT VISUALIZED. 14. [id number] mitral regurgitation is present. 15. Mild tricuspid regurgitation present. 16. There is moderate pulmonary hypertension. 17. Trace/mild (physiologic) pulmonic regurgitation. 18. The aortic root size is normal. 19. There is a small, generalized pericardial effusion present. QUALITY ASSURANCE PROJECT MANAGER: Yolande Tapia RDCS
[2020-07-05] MEDS: SODIUM CHLORIDE 0.9% 1,000 ML IV SCH (18:54)
[2020-07-05] MEDS: ACETAMINOPHEN TAB 500 MG TAB PO PRN (22:42)
--- NOTE | 2020-07-05 22:51 | P.HPIM ---
History of Present Illness H&P Date: 07/05/20 Chief Complaint: Chest pain History of presenting complaint: This is a very pleasant [address] Walker. Chronic stable medical conditions include COPD, GERD, hypertension, osteoarthritis, history of pulmonary embolism, colon cancer anxiety depression. Patient underwent a colonoscopy by Dr. Xiao. And a very small polyp removed. Postprocedure she started feeling heaviness in the chest. Palpitations. Did break out in a sweat. Also developed a pain between her shoulder blades. She is brought down to the ER. Ruled in for acute [place]. Cardiac catheterization last night. Did not see any significant disease. Patient this morning chest pain-free. Review of systems: GEN.: Tired EYES: None HEENT: None NECK: None RESPIRATORY: None CARDIOVASCULAR: As above] GASTROINTESTINAL: None GENITOURINARY: None MUSCULOSKELETAL: None LYMPHATICS: None HEMATOLOGICAL: None PSYCHIATRY: None NEUROLOGICAL: None Past medical history to include: COPD, GERD, hypertension, osteoarthritis, pulmonary embolism, colon cancer, anxiety, depression Social history: Lives with significant other called [employer]. Smoked for 20 years stopped about 20 years ago. Physical examination: VITAL SIGNS: Afebrile, 84, 16, 115/93, 95% room air GENERAL: BMI 38.8, laying in bed, comfortable. EYES: Pupils equal. Conjunctiva normal. HEENT: External appearance of nose and ears normal, oral cavity grossly normal. NECK: JVD not raised; masses not palpable. HEART: First and second heart sounds are normal; no edema. LUNGS: Respiratory rate normal; clear to auscultation. ABDOMEN: Soft, nontender, liver spleen not palpable, no masses palpable. PSYCH: Alert and oriented x3; mood and affect normal. NEUROLOGICAL: Cranial nerves grossly intact; no facial asymmetry, power and sensation grossly intact. LYMPHATICS: No lymph nodes palpable in the axilla and neck INVESTIGATIONS, reviewed in the clinical context: White count 9 hemoglobin 14.4 platelets 296 potassium 4.2 creatinine 0.70 Troponin I 0.872, 5.1 LDL 120 Chest x-ray film personally reviewed by me-interstitial prominence 2-D echocardiogram-EF 20-25%. Multiple wall motion abnormality. Moderate pulmonary hypertension. Assessment: -Acute non-ST elevation myocardial infarction, likely from plaque rupture. -Urgent cardiac catheterization did not show any significant disease -Acute congestive heart failure with EF of 20-25% -Secondary pulmonary hypertension -COPD in an ex-smoker -GERD -Essential hypertension -Primary osteoarthritis -Anxiety depression otherwise specified Plan: Home medications resumed. Patient is on aspirin, IV Lasix, Synthroid, Cozaar, Lopressor. Will follow with cardiology. Care was discussed with the patient. Questions answered. Past Medical History Past Medical History: Cancer, COPD, GERD/Reflux, Hypertension, Osteoarthritis (OA), Pneumonia, Pulmonary Embolus (PE), Thyroid Disorder Additional Past Medical History / Comment(s): HYPOGLYCEMIA, HISTORY OF COLON CANCER. MVP, hx of arrythmia, HX hiatal hernia, pulmonary embolisms September 2014 after ankle fx. History of Any Multi-Drug Resistant Organisms: None Reported Past Surgical History: Bowel Resection, Cholecystectomy, Heart Catheterization, Hysterectomy, Orthopedic Surgery Additional Past Surgical History / Comment(s): D&C, THRYOIDECTOMY, ORIF right ankle Past Anesthesia/Blood Transfusion Reactions: No Reported Reaction Past Psychological History: Anxiety, Depression Additional Psychological History / Comment(s): ATIVAN, ZOLOFT Smoking Status: Former smoker Past Alcohol Use History: Rare Additional Past Alcohol Use History / Comment(s): QUIT 1999, smoked 1-2ppd for 20 yrs. Past Drug Use History: None Reported - Past Family History Father Family Medical History: Diabetes Mellitus, Hypertension, Myocardial Infarction ([place]) Sister(s) Family Medical History: Diabetes Mellitus Brother(s) Family Medical History: Cancer, Diabetes Mellitus Mother Family Medical History: Cancer Medications and Allergies Home Medications Medication Instructions Recorded Confirmed Type Levothyroxine Sodium [Synthroid] 100 mcg PO DAILY 05/05/14 07/04/20 History Metoprolol Tartrate [Lopressor] 25 mg PO DAILY 30 Days tablet 10/06/14 07/04/20 Rx Furosemide [Lasix] 20 mg PO Q48H 11/15/15 07/04/20 History Isosorbide Mononitrate [Isosorbide 30 mg PO DAILY 03/21/16 07/04/20 History Mononitrate ER] Nitroglycerin Sl Tabs [Nitrostat] 0.4 mg SUBLINGUAL Q5M PRN 03/21/16 07/04/20 History Acetaminophen Tab [Tylenol Tab] 1,000 mg PO Q6HR PRN 07/04/20 07/04/20 History DULoxetine HCL [Cymbalta] 60 mg PO DAILY 07/04/20 07/04/20 History Omeprazole 20 mg PO DAILY 07/04/20 07/04/20 History Allergies Allergy/AdvReac Type Severity Reaction Status Date / Time adhesive Allergy VERY RED Verified 07/04/20 13:56 SKIN WITH TAPE amoxicillin trihydrate Allergy Nausea & Verified 07/04/20 13:56 [From Augmentin] Vomiting Iodinated Contrast Media Allergy Nausea & Verified 07/04/20 13:56 [Iodinated Contrast Media - Vomiting IV Dye] iodine Allergy Rash/Hives Verified 07/04/20 13:56 potassium clavulanate Allergy Nausea & Verified 07/04/20 13:56 [From Augmentin] Vomiting sulfamethoxazole Allergy Rash/Hives Verified 07/04/20 13:56 [From Bactrim] trimethoprim [From Bactrim] Allergy Rash/Hives Verified 07/04/20 13:56 Physical Exam Vitals: Vital Signs Temp Pulse Pulse Resp BP BP BP 07/05/20 08:00 84 16 115/93 07/05/20 03:08 85 16 104/68 07/04/20 23:57 86 16 122/71 07/04/20 22:25 86 16 122/71 07/04/20 21:55 97 16 121/79 07/04/20 21:25 89 16 125/68 07/04/20 21:10 92 16 106/71 07/04/20 20:55 84 16 121/73 07/04/20 20:40 85 16 115/69 07/04/20 20:00 97.3 F L 85 16 115/69 07/04/20 16:18 87 18 120/52 07/04/20 16:00 91 16 137/92 07/04/20 14:42 82 18 146/78 07/04/20 13:34 82 18 178/89 07/04/20 12:56 98.6 F 77 18 160/90 Pulse Ox 07/05/20 08:00 95 07/05/20 03:08 96 07/04/20 23:57 96 07/04/20 22:25 96 07/04/20 21:55 96 07/04/20 21:25 96 07/04/20 21:10 96 07/04/20 20:55 97 12/07/20 20:40 97 07/04/20 20:00 97 07/04/20 16:18 97 07/04/20 16:00 96 07/04/20 14:42 99 07/04/20 13:34 99 07/04/20 12:56 97 Intake and Output 07/04/20 07/05/20 07/05/20 22:59 06:59 14:59 Intake Total 97.472 Output Total 800 750 Balance -702.528 -750 Intake: IV 50 Intake, IV Titration 47.472 Amount Heparin Sod,Pork in 0.45% 47.472 NaCl 25,000 unit In 0.45 % NaCl 1 250ml.bag @ 10.2 UNITS/KG/HR 9.994 mls/hr IV .Q24H [facility] Rx#: [id number] Output: Urine 800 750 Other: # Voids 1 Weight 97.976 kg 96.3 kg Results CBC & Chem 7: 07/05/20 07:35 07/05/20 07:35 Labs: Abnormal Lab Results - Last 24 Hours (Table) 07/04/20 07/04/20 07/04/20 Range/Units 13:24 13:24 16:19 Chloride 109 H (98-107) mmol/L Carbon Dioxide 21 L (22-30) mmol/L Glucose (74-99) mg/dL POC Glucose (mg/dL) (75-99) mg/dL AST 56 H (14-36) U/L ALT 58 H (4-34) U/L Troponin I 0.872 H* 5.140 H* (0.000-0.034) ng/mL Cholesterol (<200) mg/dL LDL Cholesterol, Calc (0-99) mg/dL HDL Cholesterol (40-60) mg/dL 07/04/20 07/05/20 07/05/20 Range/Units 19:01 06:23 07:35 Chloride (98-107) mmol/L Carbon Dioxide (22-30) mmol/L Glucose 198 H (74-99) mg/dL POC Glucose (mg/dL) 113 H 129 H (75-99) mg/dL AST (14-36) U/L ALT (4-34) U/L Troponin I (0.000-0.034) ng/mL Cholesterol 210 H (<200) mg/dL LDL Cholesterol, Calc 120 H (0-99) mg/dL HDL Cholesterol 75 H (40-60) mg/dL Thrombosis Risk Factor Assmnt - Choose All That Apply Any of the Below Risk Factors Present?: Yes Each Factor Represents 1 point: Medical pt on bed rest, Obesity (BMI >25) Other Risk Factors: Yes Each Risk Factor Represents 2 Points: Age 61-74 years Each Risk Factor Represents 3 Points: History of DVT/PE Other congenital or acquired thrombophilia - If yes, enter type in comment: No Thrombosis Risk Factor Assessment Total Risk Factor Score: 7 Thrombosis Risk Factor Assessment Level: High Risk
[2020-07-06] MEDS: PANTOPRAZOLE 40 MG TABLET PO SCH (06:24)
[2020-07-06] MEDS: LEVOTHYROXINE 100 MCG TAB PO SCH (06:24)
[2020-07-06 08:22] VITALS: RESP 18
[2020-07-06] MEDS ORDERED: APIXABAN 5 MG TAB PO SCH (09:15)
[2020-07-06] MEDS ORDERED: FUROSEMIDE 40 MG TAB PO SCH (09:15)
[2020-07-06] MEDS: ENOXAPARIN 100 MG/ML SYRINGE SQ SCH (09:22)
[2020-07-06] MEDS: FUROSEMIDE 10 MG/ML 2 ML VIAL IV SCH (09:22)
[2020-07-06] MEDS: DULoxetine HCL 60 MG CAPSULE.DR PO SCH (09:43)
[2020-07-06] MEDS: ASPIRIN 81 MG PO SCH (09:43)
[2020-07-06] MEDS: LOSARTAN 25 MG TAB PO SCH (09:43)
[2020-07-06] MEDS: METOPROLOL TARTRATE 25 MG TAB PO SCH (09:44)
--- NOTE | 2020-07-06 10:34 | P.PN ---
Subjective This is a pleasant 69-year-old female past medical history significant for hypertension, dyslipidemia and former nicotine dependence. She underwent cardiac catheterizationsecondary to troponin elevation revealing no significant obstructive disease and no gradient across the aortic valve with evidence of anterior apical septal hypokinesia as well as inferior apical suggestive of Takotsubo syndrome. She is seen and examined sitting up in bed in no acute distress. She is having significant anxiety and is quite tearful regarding her home situation. She has a lot of stress at home with her daughter and she also takes care of an ill . Blood pressure 117/81 heart rate 67 afebrile maintaining oxygen saturation on room air. Currently maintained on subcu Lovenox, aspirin 81 mg daily, Lasix 20 mg IV twice a day, losartan 12.5 mg daily and metoprolol 25 mg twice a day. Telemetry tracings reveal persistent sinus mechanism with no acute arrhythmias. GENERAL: Well-appearing, well-nourished and in no acute distress. NECK: Supple without JVD or thyromegaly. LUNGS: Breath sounds clear to auscultation bilaterally. Respiration equal and unlabored. No wheezes, rales or rhonchi. HEART: Regular rate and rhythm without murmurs, rubs or gallops. S1 and S2 heard. EXTREMITIES: Normal range of motion, no edema. No clubbing or cyanosis. Peripheral pulses intact. Right radial access site intact with no bleeding, oozing, hematoma or ecchymosis. ASSESSMENT Non-ST elevated myocardial infarction Takotsubo syndrome Hypertension Dyslipidemia Former nicotine dependence PLAN Transitioned to oral diuretics, Lasix 40 mg daily. Initiate Eliquis 5 mg twice a day. Explained to the patient she will only need to be on this for approximately 6 weeks to prevent thrombolic phenomenon secondary to poor LV function. Stable for discharge from a cardiac perspective on current medical regimen. Follow-up in the office with Dr. Nix/Shon in one week. Nurse Practitioner note has been reviewed, I agree with a documented findings and plan of care. Patient was seen and examined. Objective - Vital Signs Vital signs: Vital Signs Temp 98.0 F 07/06/20 07:45 Pulse 67 07/06/20 07:45 Resp 18 07/06/20 07:45 BP 117/81 07/06/20 07:45 Pulse Ox 96 07/06/20 07:45 Intake & Output 07/05/20 07/06/20 07/06/20 18:59 06:59 18:59 Intake Total 660 Output Total 1700 1700 Balance -1040 -1700 Intake: Oral 660 Output: Urine 1700 1700 Other: # Voids 2 # Bowel Movements 0 - Labs CBC & Chem 7: 07/05/20 07:35 07/05/20 07:35
[2020-07-06 13:27] VITALS: TEMP 98.1
[2020-07-06 15:47] VITALS: BP 117/60; PULSE 71
--- NOTE | 2020-07-07 19:48 | P.DS ---
Providers Date of admission: 07/05/20 12:16 Expected date of discharge: 07/06/20 Attending physician: Manny Rivera Consults: 07/04/20 14:33 Consult Physician Urgent Consulting Provider: [facility] Consult Reason/Comments: NSTEMI Do you want consulting provider notified?: Yes Primary care physician: [facility] Course: Chief Complaint: Chest pain History of presenting complaint: This is a very pleasant [address] Walker. Chronic stable medical conditions include COPD, GERD, hypertension, osteoarthritis, history of pulmonary embolism, colon cancer anxiety depression. Patient underwent a colonoscopy by Dr. Xiao. And a very small polyp removed. Postprocedure she started feeling heaviness in the chest. Palpitations. Did break out in a sweat. Also developed a pain between her shoulder blades. She is brought down to the ER. Ruled in for acute [place]. Cardiac catheterization last night. Did not see any significant disease. Possibly plaque rupture. Patient this morning chest pain-free. Today-feeling well. No chest pain or shortness of breath. Discussed. Cleared by superintendent cemetery: Dr. Vero Menendez from cardiology Physical examination: VITAL SIGNS: 98.1, 71, 18, 117/60, 97% room air GENERAL: Sitting up, comfortable. EYES: Pupils equal. Conjunctiva normal. NECK: JVD not raised; masses not palpable. HEART: First and second heart sounds are normal; no edema. LUNGS: Respiratory rate normal; clear to auscultation. ABDOMEN: Soft, nontender, liver spleen not palpable, no masses palpable. PSYCH: Alert and oriented x3; mood and affect normal. INVESTIGATIONS, reviewed in the clinical context: July 06: White count 5.8 hemoglobin 14.5 potassium 4.7 creatinine 0.71 White count 9 hemoglobin 14.4 platelets 296 potassium 4.2 creatinine 0.70 Troponin I 0.872, 5.1 LDL 120 Chest x-ray film personally reviewed by me-interstitial prominence 2-D echocardiogram-EF 20-25%. Multiple wall motion abnormality. Moderate pulmonary hypertension. Cardiac catheterization-minimal disease Assessment: -Acute non-ST elevation myocardial infarction, likely from plaque rupture. -Urgent cardiac catheterization did not show any significant disease -Takotsubo syndrome -Acute congestive heart failure with EF of 20-25% -Secondary pulmonary hypertension -COPD in an ex-smoker -GERD -Essential hypertension -Primary osteoarthritis -Anxiety depression otherwise specified Disposition: Home Patient Condition at Discharge: Stable Plan - Discharge Summary Discharge Rx Participant: No New Discharge Prescriptions: New Losartan [Cozaar] 12.5 mg PO DAILY #90 tab Apixaban [Eliquis] 5 mg PO BID #60 tab Furosemide [Lasix] 40 mg PO DAILY #90 tab Metoprolol Tartrate [Lopressor] 25 mg PO BID #180 tab Aspirin 81 mg PO DAILY chew Atorvastatin Calcium [Lipitor] 20 mg PO HS #30 tab Continue Levothyroxine Sodium [Synthroid] 100 mcg PO DAILY Nitroglycerin Sl Tabs [Nitrostat] 0.4 mg SUBLINGUAL Q5M PRN PRN Reason: Chest Pain DULoxetine HCL [Cymbalta] 60 mg PO DAILY Omeprazole 20 mg PO DAILY Acetaminophen Tab [Tylenol] 1,000 mg PO Q6HR PRN PRN Reason: Pain Discontinued Metoprolol Tartrate [Lopressor] 25 mg PO DAILY 30 Days tablet Furosemide [Lasix] 20 mg PO Q48H Isosorbide Mononitrate [Isosorbide Mononitrate ER] 30 mg PO DAILY Discharge Medication List Levothyroxine Sodium [Synthroid] 100 mcg PO DAILY 05/05/14 [History] Nitroglycerin Sl Tabs [Nitrostat] 0.4 mg SUBLINGUAL Q5M PRN 03/21/16 [History] Acetaminophen Tab [Tylenol] 1,000 mg PO Q6HR PRN 07/04/20 [History] DULoxetine HCL [Cymbalta] 60 mg PO DAILY 07/04/20 [History] Omeprazole 20 mg PO DAILY 07/04/20 [History] Apixaban [Eliquis] 5 mg PO BID #60 tab 07/06/20 [Rx] Aspirin 81 mg PO DAILY chew 07/06/20 [Rx] Atorvastatin Calcium [Lipitor] 20 mg PO HS #30 tab 07/06/20 [Rx] Furosemide [Lasix] 40 mg PO DAILY #90 tab 07/06/20 [Rx] Losartan [Cozaar] 12.5 mg PO DAILY #90 tab 07/06/20 [Rx] Metoprolol Tartrate [Lopressor] 25 mg PO BID #180 tab 07/06/20 [Rx] Follow up Appointment(s)/Referral(s): Meghna Menendez MD [STAFF PHYSICIAN] - 07/12/20 1:15 pm (This appointment is set with Dr Nix, the office will call you when it is switched to Dr DHARA Menendez. ) Rommel Walker DO [Primary Care Provider] - 1-2 days (Office is now closed, please call to schedule appointment. ) Patient Instructions/Handouts: After Radial Heart Catheterization (GEN) Discharge Disposition: HOME SELF-CARE
--- NOTE | 2020-07-07 23:42 | CDI ---
Documentation Clarification Form Date: 07/08/2020 From: James Menendez Phone: If you have a question about this query, please contact Christine Pearson, [employer] Technician at [phone] between 8am and 5pm. Admit Date: 07/05/2020 12:16:00 PM Patient Name: Shante Prado Visit Number: [id number] Discharge Date: 07/06/2020 06:15:00 PM ATTENTION: The Clinical Documentation Specialists (CDI) and [facility] Coding Staff appreciate your assistance in clarifying documentation. Please respond to the clarification below the line at the bottom and electronically sign. The CDI & [facility] Coding staff will review the response and follow-up if needed. Please note: Queries are made part of the Legal Health Record. If you have any questions, please contact the author of this message via ITS. Dr. Manny Rivera MD., CHF is documented in the HP and DS as "Acute congestive heart failure with EF of 20-25%". History/Risk Factors: Obesity, Hyperlipidemia, Hypertension VS/Pulse OX: 07/05/20 08:00 84 16 115/93 BNP: NA Echocardiogram Results: Overall left ventricular systolic function is severely impaired with, an EF between 20 - 25 %. Chest X Ray: Prominence to the interstitium and vasculature.Correlate to exclude mild pulmonary vascular congestion. Acute non-ST elevation myocardial infarction, likely from plaque rupture. Treatment: IV lasix DS stated as "Acute congestive heart failure with EF of 20-25%" In your professional opinion, can you please clarify type of CHF if known? Acute Systolic Heart Failure: Acute Diastolic heart failure Unable to Determine Other, please specify Acute congestive heart failure from systolic dysfunction EF 20-25%, MTDD
== END 2020-07-06 18:15 | disposition home or self-care (01) | DRG 280 ==
LOC: EC 12:55 → 3SCARD 14:33 → OBSVTOIN 07-05 12:16
PROVIDERS: ADMIT Hospitalist; ATTEND Hospitalist
PROC: 4A023N7 Measurement of Cardiac Sampling and Pressure, Left Heart, Percutaneous Approach (ICD-10-PCS; principal; 2020-07-04 18:35)
PROC: B2111ZZ Fluoroscopy of Multiple Coronary Arteries using Low Osmolar Contrast (ICD-10-PCS; principal; 2020-07-04 18:35)
DX: I21.4 Non-ST elevation (NSTEMI) myocardial infarction (principal); I50.21 Acute systolic (congestive) heart failure; I51.81 Takotsubo syndrome; E78.5 Hyperlipidemia, unspecified; E78.00 Pure hypercholesterolemia, unspecified; E66.9 Obesity, unspecified; E03.9 Hypothyroidism, unspecified; F41.8 Other specified anxiety disorders; I11.0 Hypertensive heart disease with heart failure; I25.10 Atherosclerotic heart disease of native coronary artery without angina pectoris; I27.29 Other secondary pulmonary hypertension; J44.9 Chronic obstructive pulmonary disease, unspecified; K21.9 Gastro-esophageal reflux disease without esophagitis; M19.91 Primary osteoarthritis, unspecified site; Z68.39 Body mass index [BMI] 39.0-39.9, adult; Z79.82 Long term (current) use of aspirin; Z79.890 Hormone replacement therapy; Z79.899 Other long term (current) drug therapy; Z82.49 Family history of ischemic heart disease and other diseases of the circulatory system; Z83.3 Family history of diabetes mellitus; Z85.038 Personal history of other malignant neoplasm of large intestine; Z86.711 Personal history of pulmonary embolism; Z87.891 Personal history of nicotine dependence; Z90.710 Acquired absence of both cervix and uterus; Z91.041 Radiographic dye allergy status; Z88.0 Allergy status to penicillin; Z88.2 Allergy status to sulfonamides; Z88.8 Allergy status to other drugs, medicaments and biological substances; Z91.09 Other allergy status, other than to drugs and biological substances; Z90.49 Acquired absence of other specified parts of digestive tract; Z80.9 Family history of malignant neoplasm, unspecified
CPT/HCPCS: 36415; 71046; 80048; 80053; 80061; 83735; 84484; 85025; 85027; 85610; 85730; 93005; 93306; 93458; 94760; 96365; 96366; 96376; 99291

== ENCOUNTER → 2020-07-26 | Outpatient (CLI) | payer MEDICARE ==
--- NOTE | 2020-07-27 14:12 | MM ---
Reason for exam: screening (asymptomatic). Last mammogram was performed 1 year and 6 months ago. History: Patient is postmenopausal and has history of colon cancer at age 51. Physical Findings: A clinical breast exam by your physician is recommended on an annual basis and results should be correlated with mammographic findings. MG 3D Screening Mammo W/Cad Bilateral CC and MLO view(s) were taken. Prior study comparison: January 19, 2019, bilateral MG 3d screening mammo w/cad. August 06, 2017, bilateral MG 3d screening mammo w/cad. There are scattered fibroglandular densities. No significant changes when compared with prior studies. ASSESSMENT: Benign, BI-RAD 2 RECOMMENDATION: Routine screening mammogram of both breasts in 1 year.
== END | disposition home or self-care (01) ==
LOC: RADMAMWWP 09:48
PROVIDERS: ATTEND Family Medicine
DX: Z12.31 Encounter for screening mammogram for malignant neoplasm of breast (principal)
CPT/HCPCS: 77063; 77067

== ENCOUNTER 2021-05-09 09:48 | Day surgery (SDC) | payer MEDICARE ==
[2021-05-08 08:44] VITALS: BMI 39.3
[~2021-05-09 09:48] MED LIST: LIDOCAINE 1% (10MG/ML) FOR IV START INTRADERMA PRN; ONDANSETRON 4 MG/2 ML VIAL IVP ONE; Pre Op ABX Message 1 EACH MISC MISCELLANE ONE
[2021-05-09] MEDS ORDERED: ceFAZolin 3 GM in SODIUM CHLORIDE 0.9% 100 ML IVPB ONE (10:29)
[2021-05-09 10:42] LABS: Glucose,Whole Blood 107 mg/dL (75-99)
[2021-05-09] MEDS ORDERED: DEXAMETHASONE SOD PHOSPHATE 4 MG/ML 1 ML VIAL IVP ONE (10:44)
[2021-05-09] MEDS: LACTATED RINGERS 1,000 ML IV SCH ×2 (10:44→11:09)
[2021-05-09] MEDS ORDERED: HYDROmorphone (PF) 1 MG/ML ONE (11:05)
[2021-05-09] MEDS ORDERED: PROPOFOL 10 MG/ML 20 ML VIAL IV ONE (11:05)
[2021-05-09] MEDS ORDERED: fentaNYL (PF) 50 MCG/ML 2 ML AMP ONE (11:05)
[2021-05-09] MEDS ORDERED: LIDOCAINE 1% INJ 10MG/ML (20 ML MDV) ONE (11:05)
[2021-05-09] MEDS ORDERED: MIDAZOLAM 2 MG/2 ML VIAL ONE (11:05)
[2021-05-09] MEDS ORDERED: BUPIVACAINE (PF) 0.25% 30 ML VIAL SQ ONE ×2 (11:29→11:39)
--- NOTE | 2021-05-09 11:45 | P.OP ---
Date of Procedure: 05/09/21 Preoperative Diagnosis: Torn medial meniscus right knee Postoperative Diagnosis: 1. torn medial and lateral meniscus right knee 2. 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 Synovitis Procedure(s) Performed: 1. Arthroscopy of the right knee with partial medial meniscectomy (20% of meniscus excised) 2. Partial lateral meniscectomy (10% of meniscus excised) 3. Chondroplasty of the medial femoral, lateral femoral, patellofemoral compartments 4. Partial synovectomy of the medial femoral, lateral femoral, patellofemoral compartments Anesthesia: JAREN Surgeon: Gerald Lam Estimated Blood Loss (ml): 5 Pathology: none sent Condition: stable Disposition: PACU Indications for Procedure: This is a 70-year-old female that presented to my office with pain in her right knee. An MRI demonstrated torn medial meniscus and after discussing the surgical and nonsurgical treatment options for her at length, she wished to proceed with arthroscopic debridement right knee. Informed consent was obtained. Operative Findings: The operative findings are consistent with a torn medial and lateral meniscus of the right knee. Also there is grade 3-4 chondral malacia the medial femoral, lateral femoral, patellofemoral compartments. There is also a moderate amount of synovitis Description of Procedure: Patient was seen and evaluated in the preoperative area, the operative site was marked with a skin marker. The patient was then brought to the operating room and given 3 g of Ancef intravenously. A general anesthetic was administered by the anesthesia department. Tourniquet was placed on the right upper thigh and the left lower extremity was then prepped and draped in usual sterile fashion. A universal timeout was then performed confirming the patient's name, surgical site, ALLERGIES, and consent. The limb was then exsanguinated and tourniquet insufflated to 350 mmHg. Standard inferior medial and inferior lateral portals were established in the knee. The trochar was inserted in the inferolateral portal. Examination began at the patellofemoral joint. There is noted to be grade 3-4 chondral malacia the patellofemoral compartment and a moderate amount of synovitis. Next the medial compartment was visualized. There was a tear of the posterior horn of the medial meniscus. There was grade 3-4 chondral malacia the mediofemoral compartment and synovitis. The notch area was then visualized and the ACL was intact. The Lateral compartment was then visualized and there was a tear of the posterior horn of the lateral meniscus. There was grade 3-4 chondromalacia, and a mild amount of synovitis. Next, using an arthroscopic shaver and a biter, partial medial meniscectomy was performed stable margins. Approximately 20% of the meniscus was excised. a partial lateral meniscectomy was also performed with approximately 10% of the lateral meniscus excised. A partial synovectomy is performed the medial femoral, lateral femoral, patellofemoral compartments. Chondroplasty was also performed of the medial femoral, lateral femoral, and patellofemoral compartments of the knee. Knee was then copiously irrigated, instruments removed, incisions were closed with 4-0 nylon. 30 mL of quarter percent plain Marcaine was injected sterilely into the surgical area. A sterile dressing was then applied, and the tourniquet was released. Patient was then transferred to recovery room in stable condition.condition.
[2021-05-09 12:00] VITALS: TEMP 96.8
[2021-05-09] MEDS: HYDROmorphone 0.5 MG/0.5 ML SYRINGE IVP PRN ×2 (12:00→12:12)
[2021-05-09] MEDS ORDERED: diphenhydrAMINE 50 MG/ML 1 ML VIAL ONE (12:34)
[2021-05-09] MEDS ORDERED: diphenhydrAMINE 50 MG/ML 1 ML VIAL IVP ONE (12:35)
[2021-05-09] MEDS ORDERED: LACTATED RINGERS 1,000 ML IV ONE (12:55)
[2021-05-09 13:36] VITALS: BP 111/63; PULSE 75; RESP 16
== END 2021-05-09 14:10 | disposition home health service (06) ==
LOC: OR 09:48
PROVIDERS: ATTEND Orthopaedic Surgery
DX: M23.203 Derangement of unspecified medial meniscus due to old tear or injury, right knee (principal); M65.861 Other synovitis and tenosynovitis, right lower leg; M94.261 Chondromalacia, right knee; M17.0 Bilateral primary osteoarthritis of knee; I11.9 Hypertensive heart disease without heart failure; R51.9 Headache, unspecified; E03.9 Hypothyroidism, unspecified; K21.9 Gastro-esophageal reflux disease without esophagitis; E78.2 Mixed hyperlipidemia; K76.6 Portal hypertension; R00.2 Palpitations; E16.2 Hypoglycemia, unspecified; J98.4 Other disorders of lung; E78.00 Pure hypercholesterolemia, unspecified; F32.9 Major depressive disorder, single episode, unspecified; I34.1 Nonrheumatic mitral (valve) prolapse; I25.2 Old myocardial infarction; J44.9 Chronic obstructive pulmonary disease, unspecified; F41.9 Anxiety disorder, unspecified; Z97.3 Presence of spectacles and contact lenses; Z98.51 Tubal ligation status; Z98.890 Other specified postprocedural states; Z87.891 Personal history of nicotine dependence; I25.10 Atherosclerotic heart disease of native coronary artery without angina pectoris; Z85.038 Personal history of other malignant neoplasm of large intestine; Z90.710 Acquired absence of both cervix and uterus; Z86.711 Personal history of pulmonary embolism; Z82.49 Family history of ischemic heart disease and other diseases of the circulatory system; Z83.3 Family history of diabetes mellitus; Z79.899 Other long term (current) drug therapy; Z79.1 Long term (current) use of non-steroidal anti-inflammatories (NSAID); Z79.82 Long term (current) use of aspirin; Z79.890 Hormone replacement therapy; Z88.0 Allergy status to penicillin; Z88.2 Allergy status to sulfonamides; Z91.048 Other nonmedicinal substance allergy status; Z88.1 Allergy status to other antibiotic agents; Z91.041 Radiographic dye allergy status; Z91.09 Other allergy status, other than to drugs and biological substances
CPT/HCPCS: 29880; 84132; J2250; J1200; J1100; J0690; J2405; J2001; J3010; J1170 ×2; J2704

== ENCOUNTER → 2022-02-13 | Outpatient (CLI) | payer MEDICARE ==
--- NOTE | 2022-02-14 13:49 | MM ---
Reason for Exam: Screening (asymptomatic). Last mammogram was performed 1 year(s) and 7 month(s) ago. Patient History: Menarche at age 10. First Full-Term at age 18. Hysterectomy at age 38. Postmenopausal. Colorectal cancer, age 51. Risk Values: Evelyn 5 year model risk: 1.6%. NCI Lifetime model risk: 3.9%. Prior Study Comparison: 08/06/2017 Bilateral Screening Mammogram, [facility]. 01/19/2019 Bilateral Screening Mammogram, [facility]. 07/26/2020 Bilateral Screening Mammogram, [facility]. Tissue Density: The breast tissue is almost entirely fat. Findings: Analyzed By CAD. There is no suspicious group of microcalcifications or new suspicious mass in either breast. Overall Assessment: Benign, BI-RAD 2 Management: Screening Mammogram of both breasts in 1 year. A clinical breast exam by your physician is recommended on an annual basis and results should be correlated with mammographic findings. Electronically signed and approved by: Sandip Rivera M.D. Radiologis
== END | disposition home or self-care (01) ==
LOC: RADMAMWWP 14:29
PROVIDERS: ATTEND Family Medicine
DX: Z12.31 Encounter for screening mammogram for malignant neoplasm of breast (principal); Z78.0 Asymptomatic menopausal state
CPT/HCPCS: 77063; 77067

== ENCOUNTER → 2023-07-03 | Outpatient (CLI) | payer MEDICARE ==
--- NOTE | 2023-07-07 18:00 | MM ---
Reason for Exam: Screening (asymptomatic). Last mammogram was performed 1 year(s) and 5 month(s) ago. Patient History: Menarche at age 10. First Full-Term at age 18. Hysterectomy at age 38. Postmenopausal. Colorectal cancer, age 51. Risk Values: Evelyn 5 year model risk: 1.6%. NCI Lifetime model risk: 3.7%. Prior Study Comparison: 01/19/2019 Bilateral Screening Mammogram, [facility]. 07/26/2020 Bilateral Screening Mammogram, [facility]. 02/13/2022 Bilateral MG 3D screening mammo w/cad, [facility]. Tissue Density: There are scattered fibroglandular densities. Findings: Analyzed By CAD. Benign vascular calcifications redemonstrated. There is no suspicious group of microcalcifications or new suspicious mass in either breast. Overall Assessment: Benign, BI-RAD 2 Management: Screening Mammogram of both breasts in 1 year. . Patient should continue monthly self-breast exams. A clinical breast exam by your physician is recommended on an annual basis. This exam should not preclude additional follow-up of suspicious palpable abnormalities. Note on Evelyn scores and lifetime risk: 1. A Evelyn score greater than 3% is considered moderate risk. If this is the case, consider specialist referral to assess eligibility for a risk reducing agent. 2. If overall lifetime risk for the development of breast cancer is 20% or higher, the patient may qualify for future screening with alternating mammogram and breast MRI. Electronically signed and approved by: Tita Gleason M.D. Radiologist
== END | disposition home or self-care (01) ==
LOC: RADMAMWWP 10:35
PROVIDERS: ATTEND Family Medicine
DX: Z12.31 Encounter for screening mammogram for malignant neoplasm of breast (principal); Z78.0 Asymptomatic menopausal state
CPT/HCPCS: 77063; 77067

== ENCOUNTER → 2024-11-04 | Outpatient (CLI) | payer MEDICARE ==
--- NOTE | 2024-11-04 13:18 | MM ---
Reason for Exam: Screening (asymptomatic). Last mammogram was performed 1 year(s) and 4 month(s) ago. Patient History: Menarche at age 10. First Full-Term at age 18. Hysterectomy at age 38. Postmenopausal. Colorectal cancer, age 51. Risk Values: Evelyn 5 year model risk: 1.6%. NCI Lifetime model risk: 3.4%. Prior Study Comparison: 07/26/2020 Bilateral Screening Mammogram, [facility]. 02/13/2022 Bilateral MG 3D screening mammo w/cad, [facility]. 07/03/2023 Bilateral MG 3D screening mammo w/cad, [facility]. Tissue Density: There are scattered areas of fibroglandular density. Findings: Analyzed By CAD. Chronic low density nodularity posterior central below the on both sides. Benign bilateral vascular calcifications. There is no suspicious group of microcalcifications or new suspicious mass in either breast. Overall Assessment: Benign, BI-RAD 2 Management: Screening Mammogram of both breasts in 1 year. Patient should continue monthly self-breast exams. A clinical breast exam by your physician is recommended on an annual basis. This exam should not preclude additional follow-up of suspicious palpable abnormalities. Note on Evelyn scores and lifetime risk: 1. A Evelyn score greater than 3% is considered moderate risk. If this is the case, consider specialist referral to assess eligibility for a risk reducing agent. 2. If overall lifetime risk for the development of breast cancer is 20% or higher, the patient may qualify for future screening with alternating mammogram and breast MRI. [facility], , 11/04/2024 1:13 PM. Electronically signed and approved by: Tita Gleason M.D. Radiologist
== END | disposition home or self-care (01) ==
LOC: RADMAMWWP 09:34
PROVIDERS: ATTEND Family Medicine
DX: Z12.31 Encounter for screening mammogram for malignant neoplasm of breast (principal); R92.323 Mammographic fibroglandular density, bilateral breasts; Z78.0 Asymptomatic menopausal state
CPT/HCPCS: 77063; 77067